=== PATIENT | male | born 2000 | race Caucasian/White ===

== ENCOUNTER 2024-04-01 17:37 | Emergency (ER) | payer MEDICAID ==
[~2024-04-01] VITALS: Ht 185.4 cm; Wt 65.0 kg
[2024-04-01 17:52] VITALS: BP 109/61; PULSE 84; RESP 16; TEMP 98; O2SAT 100
[2024-04-01] MEDS ORDERED: SULF1TAB48 MT (22:20)
[2024-04-01] MEDS ORDERED: PERM60CR4 TP (22:20)
== END 2024-04-01 23:04 | disposition home or self-care (01) ==
LOC: ER 17:37
DX: R21 Rash and other nonspecific skin eruption (principal)
CPT/HCPCS: 99283

== ENCOUNTER 2024-05-11 21:05 | Emergency (ER) | payer MEDICAID ==
[~2024-05-11] VITALS: Ht 180.3 cm; Wt 68.5 kg
[~2024-05-11 21:05] MED LIST: PERM60CR4 TP; SULF1TAB48 MT
[2024-05-11 21:17] VITALS: TEMP 98.1; O2SAT 100
[2024-05-11] MEDS ORDERED: BENZ100C86 MT (23:16)
[2024-05-11 23:58] VITALS: BP 103/67; PULSE 61; RESP 16; O2SAT 99
[2024-05-13] MEDS ORDERED: AZIT250T12 MT (09:04)
== END 2024-05-11 23:58 | disposition home or self-care (01) ==
LOC: ER 21:05
DX: J18.9 Pneumonia, unspecified organism (principal); R05.9 Cough, unspecified; Z79.899 Other long term (current) drug therapy
CPT/HCPCS: 71045; 99283